=== PATIENT | female | born 2000 | race African-American/Black ===

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

== ENCOUNTER 2020-01-22 13:03 | Emergency (ER) | payer OTHER ==
[~2020-01-22] VITALS: Ht 157.5 cm; Wt 85.0 kg
[2020-01-22 13:36] LABS: URINE BILIRUBIN - DIPSTICK NEGATIVE (NEGATIVE); URINE BLOOD DIPSTICK NEGATIVE (NEGATIVE); URINE COLOR YELLOW; URINE GLUCOSE - DIPSTICK NEGATIVE (NEGATIVE); URINE KETONE TRACE mg/dL (NEGATIVE); URINE LEUK ESTERASE TRACE (NEGATIVE); URINE NITRITE - DIPSTICK NEGATIVE (Negative); URINE PH 7.5 (4.5-8.0); URINE PROTEIN - DIPSTICK NEGATIVE (NEG-TRACE)
[2020-01-22] MEDS ORDERED: PRE-NATAL PO (14:30)
[2020-01-22 14:37] VITALS: BP 133/59
== END 2020-01-22 14:40 | disposition home or self-care (01) ==
LOC: ED 13:03
DX: O26.899 Other specified pregnancy related conditions, unspecified trimester (principal); R10.30 Lower abdominal pain, unspecified; R11.0 Nausea; Z3A.00 Weeks of gestation of pregnancy not specified

== ENCOUNTER 2020-02-09 15:06 | Emergency (ER) | payer OTHER ==
[~2020-02-09] VITALS: Ht 152.4 cm; Wt 95.0 kg
[2020-02-09 16:15] LABS: HEMATOCRIT 34.2 % (37.0-47.0); HEMOGLOBIN 10.1 g/dl (12.0-16.0); IMMATURE GRANULOCYTES 0.3 % (0.0-5.0); MEAN CELL VOLUME 64.2 fL CALC (80.0-100.0); MEAN CORPUSCULAR HGB 18.9 pG CALC (26.0-32.0); MEAN CORPUSCULAR HGB CONC 29.5 g/dL CAL (32.0-36.0); NEUT# 4.45 thou/uL (2.00-7.15); RED BLOOD COUNT 5.33 mill/uL (4.20-5.60); RED CELL DISTRI WIDTH 17.2 % (11.5-15.5)
[2020-02-09 16:28] LABS: URINE BILIRUBIN - DIPSTICK NEGATIVE (NEGATIVE); URINE BLOOD DIPSTICK NEGATIVE (NEGATIVE); URINE COLOR YELLOW; URINE GLUCOSE - DIPSTICK NEGATIVE (NEGATIVE); URINE KETONE TRACE mg/dL (NEGATIVE); URINE LEUK ESTERASE NEGATIVE (NEGATIVE); URINE NITRITE - DIPSTICK NEGATIVE (Negative); URINE PROTEIN - DIPSTICK NEGATIVE (NEG-TRACE)
[2020-02-09 16:34] LABS: BUN 9 mg/dL (8-21); BUN/CREATININE RATIO 18 (12-20 (CALC)); CARBON DIOXIDE 21 mmol/l (22-30); CHLORIDE 104 mmol/l (95-108); CREATININE 0.5 mg/dL (0.5-1.0); GFR > 60 ML/MIN (>=60 (CALC)); GFR FOR AFR.AMER. > 60 ML/MIN (>=60 (CALC)); LIPASE 41 u/l (23-300); SGOT/AST 21 u/l (14-36); SODIUM 135 mmol/l (137-146); TOTAL PROTEIN 7.3 g/dL (6.3-8.2)
[2020-02-09 16:35] LABS: ALKALINE PHOSPHATASE 72 u/l (38-126); ANION GAP 14 (6-22 (CALC)); BILIRUBIN, TOTAL 0.3 mg/dL (0.0-1.4); POTASSIUM 4.1 mmol/l (3.5-5.1)
[2020-02-09 17:18] LABS: BETA-HCG, QUANT(RESULT NUMBER) 38183 mIU/mL
[2020-02-09 19:06] VITALS: BP 125/61
== END 2020-02-09 19:06 | disposition home or self-care (01) ==
LOC: ED 15:06
PROVIDERS: Family Medicine
DX: O26.891 Other specified pregnancy related conditions, first trimester (principal); R10.30 Lower abdominal pain, unspecified; Z3A.01 Less than 8 weeks gestation of pregnancy

== ENCOUNTER 2020-05-23 13:28 | Emergency (ER) | payer OTHER | END 2020-05-23 15:41 | disposition left against medical advice (07) | LOC: ED 13:28 → LWOBS 15:40 | DX: Z91.19 Patient's noncompliance with other medical treatment and regimen (principal) ==

== ENCOUNTER 2020-09-03 17:12 | Emergency (ER) | payer OTHER ==
[2020-09-03] MEDS ORDERED: KEFLEX500 MG PO (17:44)
[2020-09-03] MEDS ORDERED: HYDROCORTISONE2.5 % EX (17:44)
[2020-09-03 18:03] VITALS: BP 129/61
== END 2020-09-03 18:03 | disposition home or self-care (01) ==
LOC: ED 17:12
DX: T63.481A Toxic effect of venom of other arthropod, accidental (unintentional), initial encounter (principal); L08.9 Local infection of the skin and subcutaneous tissue, unspecified